=== PATIENT | male | born 1975 | race Caucasian/White ===

== ENCOUNTER 2020-01-03 00:31 | Day surgery (SDC) | payer OTHER, SELFPAY ==
[2019-12-21 13:16] VITALS: BMI 23.6
[2020-01-03] VITALS (10 sets, daily range): BP systolic 90–119; BP diastolic 48–93; PULSE 62–81; RESP 12–18; TEMP 36.3–36.9; O2SAT 99–100
--- NOTE | ~2020-01-03 | XR_ITS ---
EXAMINATION: XR surgery orthopedic DATE: 01/07/2020 06:20 INDICATION: Left hallux valgus surgery. TECHNIQUE: 2 fluoroscopic spot images of the left forefoot were obtained during procedure performed brook Saini. Radiologist was not present for the imaging or procedure. The amount of fluoroscopy ti me used during this procedure was 0.4 minutes. COMPARISON: None. FINDINGS: 20 degree hallux valgus. Osteotomy at the dorsal, medial and lateral aspects of the head of the first metatarsal as well as at the lateral base of the first proximal phalanx.. Expected postoperative gas about the first metatarsal head. No fracture. Mild polyarticular osteoarthritis at the first metatar sophalangeal and multiple interphalangeal joints. IMPRESSION: 1. Cheilectomy at the head of the first metatarsal and base of the first proximal phalanx. Reviewed, dictated and finalized at location A. LYRICIST IMPRESSION: 1. Cheilectomy at the head of the first metatarsal and base of the first proxim al phalanx.
--- NOTE | 2020-01-03 07:13 | WPDHPUPDATE1 ---
History and Physical Update Update Date/Time: 01/03/20 07:13 History and Physical has been reviewed, including an updated exam of the patient. There are NO changes in the patient's condition. Risks, benefits, and alternatives have been discussed and questions answered. Patient agrees to proceed with procedure.
[2020-01-03] MEDS: LACTATED RINGERS 1,000 ML 30 ML IV CONT ×2 (09:15→12:03)
[2020-01-03] MEDS: IBUPROFEN IV 800 MG/200 ML 800 MG/200 ML BAG 400 MG IVPB (09:15)
--- NOTE | 2020-01-03 09:18 | WPDANESEPPF ---
Anes - Initial Pre Proc Eval Procedure: Operation Date: 01/03/20 10:30 Proposed Procedures p Left Hallux Cheilectomy - Dalton Saini MD Date/Time: 01/03/20 09:18 Surgeon: Dalton Saini MD Pre Op Diagnosis: Left Hallux Rigidus Patient Data Age: 44 Gender: M Height: 1.68 m Weight: 66.22 kg Allergies Allergy/AdvReac Type Severity Reaction Status Date / Time No Known Allergies Allergy Verified 01/02/20 09:30 Home Medications Medication Instructions Recorded Confirmed Type calcium carbonate [Calcium 600] 600 mg PO DAILY 12/21/19 01/02/20 History cholecalciferol (vitamin D3) 5,000 unit PO DAILY 12/21/19 01/02/20 History [Vitamin D3] meloxicam 15 mg PO DAILY 12/21/19 01/02/20 History omega 3-dba-dpy-fish oil [[place]-3] 1 cap PO DAILY 12/21/19 01/02/20 History hydrocodone 5 mg-acetaminophen 325 1 tablet PO Q6H PRN #30 tablet 01/02/20 01/02/20 Rx mg tablet ondansetron HCl 8 mg tablet 8 mg PO Q8H PRN #10 tablet 01/02/20 01/02/20 Rx Patient hx anesthesia problems: none Family hx anesthesia problems: none [facility] Social History Social History Smoking status: Never smoker Alcohol intake: never Gender identity (if verbalized by the patient): Male Anes - Eval Final PreProcedure Day of Procedure 01/03/20 09:18 Patient weight: normal Heart: regular rate and rhythm Lungs: clear to auscultation and normal air movement Airway: Mallampati scale class II Neurological: alert and oriented Last oral intake: >/= 8 hours ASA classification: I Emergent: no Anesthetic plan: proceed Anesthesia type and monitoring: general LMA and standard monitoring Informed Consent: The patient's anesthetic plan and its attendant risks and benefits were discussed with the patient/family/POA. Questions were solicited and answers provided to the satisfaction of the patient/family/POA.
[2020-01-03] MEDS: ceFAZolin 2 GM/D5W 50 ML 2 GM/50 ML BAG IVPB (10:23)
--- NOTE | 2020-01-03 11:42 | PM.PROC ---
Procedure Note - Detailed Date of procedure: 01/03/20 Pre-op diagnosis: Left Hallux Rigidus Post-op diagnosis: same Procedure performed: Left hallux cheilectomy Description of procedure: Indications: Patient is 44-year-old gentleman with degenerative changes left hallux metatarsophalangeal joint. MRI confirms osteophytes and degenerative changes on the dorsal 25% of the metatarsal head. Failed conservative treatment with anti-inflammatories, shoe wear changes, activity modifications. Having failed conservative treatment, patient presents for operative treatment. What was done: Patient identified in the preoperative holding. Informed consent given. Operative extremity marked. Patient received intravenous antibiotics. Patient brought to the operating room where underwent general anesthetic by anesthesia team. Positioned supine on operating room table. Time-out performed confirming the patient, site of the surgery and the plan. Left foot prepped and draped usual sterile surgical fashion using ChloraPrep skin solution. Foot ankle exsanguinated calf tourniquet inflated to 225 mmHg. Dorsal longitudinal incision made over the hallux metatarsophalangeal joint a 15 blade knife. Hemostasis controlled electrocautery. Extensor tendon released on the lateral side in retracted medially. Dorsal capsulotomy performed in line with skin incision. Capsule and ligaments were released medially and laterally. Joint inspected. Degenerative changes with loss of cartilage on the dorsal 25 to 30%. Large osteophyte dorsally, medially and laterally. Osteotome used to resect the dorsal, medial and lateral osteophytes and degenerative articular surface. Edge smoothed with a rongeur. Osteophytes from the proximal phalanx dorsal and lateral aspect removed with rongeur. Resection level checked and verified with image intensification. Joint noted to be stable. No other degenerative changes left. Wound thoroughly irrigated with antibiotic solution. Toe was then reduced and capsule closed with 2 Vicryl interrupted suture. Subcutaneous tissue repaired with 3 0 Monocryl interrupted suture. Skin repaired with 4 nylon running suture. Sterile dressing applied after local anesthetic without% Marcaine plain. Tourniquet released. Good capillary refill noted in the toes. Patient woke from anesthesia, extubated and taken to the recovery room in stable condition. All sponge, needle and instrument counts correct at the end of the case. Anesthesia: GLMA Surgeon: Dalton Saini MD Injection Specialist: 1st internal medicine physician assistant Estimated blood loss (mL): 5 Tourniquet time (min): 45 Drains: No Packing: No Pathology: none sent Complications: None Condition: stable Disposition: PACU
== END 2020-01-03 14:00 | disposition home or self-care (01) ==
PROVIDERS: PCP Internal Medicine; Visit Provider Orthopaedic Surgery
PROC: (CPT 28289; principal; 2020-01-03 10:30)
DX: M20.22 Hallux rigidus, left foot (principal)
CPT/HCPCS: 28289; A9270; J0690; J1100; J1741; J2250; J2405; J2704; J3010; J7120

== ENCOUNTER → 2020-12-26 08:55 | Outpatient (CLI) | payer OTHER, SELFPAY ==
--- NOTE | ~2020-12-26 | MR_ITS ---
EXAMINATION: MR foot LT wo con DATE: 12/26/2020 09:41 INDICATION: Left foot pain. TECHNIQUE: Magnetic resonance imaging (MRI) of the left foot was performed without intravenous contra st. Sequences included sagittal T1-weighted FSE and STIR FSE, long-axis PD-weighted FS FSE and PD-marco antonio ghted FSE, and short-axis PD-weighted FS FSE and T1-weighted FSE. COMPARISON: Left foot MRI 12/12/2019, radiographs 07/16/2020, 12/04/2019, 01/23/20, 01/08/2020 FINDINGS: Bone alignment is normal. No acute fracture. There are changes of cheilectomy at the first metatarsophalangeal joint. There are foci of susceptibility artifact from the prior surgery. There is severe chondrosis of first metatarsophalangeal joint with cortical remodeling. There is moderate ost eoarthritis of second tarsometatarsal joint. There are tiny osteophytes at many of the midfoot joints . Lisfranc ligament is normal. The flexor and extensor tendons are normal. The musculature is normal. IMPRESSION: 1. Severe chondrosis of first metatarsophalangeal joint. Reviewed, dictated and finalized at location A. E STACKER HAND
== END ==
DX: M79.672 Pain in left foot (principal); M25.562 Pain in left knee; G89.29 Other chronic pain
CPT/HCPCS: 73718

== ENCOUNTER 2021-12-30 12:30 | Outpatient (RCR) | payer OTHER, SELFPAY ==
--- NOTE | 2021-11-25 13:25 | OTOPEVAL ---
OCCUPATIONAL THERAPY INITIAL EVALUATION REPORT 11/25/21 Thank you for referring Kelvin Buenrostro to [facility].? The patient is scheduled to be seen for therapy? 1x/week for 5 weeks. Please review, sign, date and return this plan of care FERNANDO. I agree with and certify that the following plan of care is medically necessary. Referring Physician Date Referring Provider: Dean Alicea MD *OT Outpatient Evaluation Start: 11/25/21 11:53 Outpatient Past Medical History Neurological History Hx Neurological Disorders No Significant History Cardiovascular History Hx Cardiac Disorders No Significant History Respiratory History Hx Respiratory Disorders No Significant History Gastrointestinal History Hx Gastrointestinal Disorders No Significant History Genitourinary History Hx Genitourinary Disorders No Significant History Musculoskeletal History Hx Other Musculoskeletal Disorders Yes: FASCIA RELEASE BILATERAL LOWER EXTREMITIES Hematological History Hx Hematological Disorders No Significant History Endocrine History Hx Endocrine Disorders No Significant History HEENT History Hx Tonsillectomy Yes Integumentary History Hx Skin Disorders No Significant History Reproductive History Hx Reproductive Disorders No Significant History Psychosocial History Hx Psychiatric Disorders No Significant History Pain History History of Any Previous or Ongoing No Significant History Instance of Pain Anesthesia History Hx Anesthesia Reactions No Significant History Evaluation Information Problem Diagnosis Left TFCC tear with foveal detachment Additional Evaluation Detail Surgery 10/08/21: Left wrist arthroscopy and debridement of TFCC with foveal repair with ulnar tunnel release Subjective Information Patient presents today wearing Query Text:As Reported By Patient/ a custom wrist orthosis that Family he wears at all times unless showering or bathing. He states he has been completing his ROM HEP 4-6x/day with good compliance. Reports restricting any heavy lifting with the left hand at this time. He has returned to being independent with ADLs, driving, and has returned to work. He reports some difficulties with typing. 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
--- NOTE | 2021-12-30 13:21 | OTOPEVAL ---
OCCUPATIONAL THERAPY RE-EVALUATION REPORT 12/30/21 Kelvin presents today for outpatient OT re-assessment after 5 weeks of therapy focused on right forearm and wrist ROM and strengthening. He is now 12 weeks post op. Functional, everyday use of the right UE has returned to normal limits for ADLs. He continues to have residual deficit with heavier lifting, but understands to progressively build strength over time to return to his weight lifting capacities prior to surgery. He is currently independent with HEP. Discussed discharging today vs. one more follow up in 4 weeks from now. He was more comfortable with scheduling 1 final follow up in 4 weeks from now. We also discussed cancelling the appointment if he felt that he was doing fine by then. Thank you for referring Kelvin Buenrostro to [facility].? The patient is scheduled to be seen for a final therapy re-evaluation on 01/27/22. Please review, sign, date and return this plan of care FERNANDO. I agree with and certify that the following plan of care is medically necessary. Referring Physician Date Referring Provider: Dean Alicea MD Evaluation Information Problem Diagnosis Left TFCC tear with foveal detachment Onset 10/08/21 Additional Evaluation Detail Surgery: Left wrist arthroscopy and debridement of TFCC with foveal repair with ulnar tunnel release Subjective Information Patient reports everything Query Text:As Reported By Patient/ has improved . States he has Family improved flexibility and strength, which has allowed for improved functional use of the left UE for typing and ADLs. He reports the only functional limitation would be returning to lifting heavy weights again. He verbalizes excellent understanding of precautions/contraindications with functional tasks moving forward. Pain Assessment Timing of Pain Assessment Timing of Pain Assessment Re-assessment Pain Scale Pain Scale Used Numeric (1 - 10) Self Report Pain Assessment Left Wrist(s) Reported Pain Level 2 Pain Description Aching Lowest Pain Intensity 0 Greatest Pain Intensity 2 Pain Score Pain Score 2: Self Report Interventions Used Interventions Used By Clinicians Exercise Upper Extremity Range of Motion Elbow/Forearm Range of Motion Left Forearm Supination - Active 80 Forearm Pronation - Active 75 Elbow/Forearm Range of Motion Comments Elbow flexion and extension is WNL. Supination improved from 60* Pronation improved from 45*
--- NOTE | 2022-01-25 11:53 | PCOTNOTE ---
OCCUPATIONAL THERAPY DISCHARGE NOTIFICATION 01/25/22 Patient:Kelvin Buenrostro Date of :1975 Please refer to the most recent progress note, dated 12/30/2021 for latest patient progress/update. Patient has not returned for any further treatments since his last re-evaluation on 12/30/2021, therefore he will be discharged at this time. At his last re-evaluation he was doing excellent and was independent with his HEP. Discussed discharging that day vs. scheduling one last follow up in 4 weeks (01/27/2022). Called him today and he states that he is doing excellent and does not feel the need to follow up. The goals have been met. Thank you for referring this patient to [facility]. Please review, sign, date and return this discharge summary FERNANDO. I have been updated about the patient's current status and I agree with discharge from the above service at this time. Referring Physician Date Referring Provider: Dean Alicea MD
== END 2022-01-25 15:29 | disposition home or self-care (01) ==
LOC: ANHOT 12:30
PROVIDERS: PCP Family Medicine
DX: M25.532 Pain in left wrist (principal)
CPT/HCPCS: 97018; 97110; 97140; 97166; 97760

== ENCOUNTER 2022-03-30 06:16 | Emergency (ER) | payer OTHER, SELFPAY ==
[2022-03-30 06:18] VITALS: BP 130/86; PULSE 72; RESP 16; TEMP 36.4; O2SAT 100
[2022-03-30] MEDS: TETANUS,DIPHTHERIA,AC PERTUSSIS ADULT (0.5 ML) BOOSTRIX IM (07:33)
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
== END 2022-03-30 08:46 | disposition home or self-care (01) ==
LOC: ANHED 08:40
PROVIDERS: Emergency Provider Emergency Medicine; PCP Family Medicine
DX: S01.111A Laceration without foreign body of right eyelid and periocular area, initial encounter (principal); Z23 Encounter for immunization; V18.4XXA Pedal cycle driver injured in noncollision transport accident in traffic accident, initial encounter; Y93.55 Activity, bike riding
CPT/HCPCS: 12051; 90471; 90715; 99283